=== PATIENT | female | born 1980 | race American Indian/Alaskan Native ===

== ENCOUNTER 2020-09-13 12:23 | Emergency (ER) | payer BC ==
[2020-09-13] MEDS ORDERED: ACETAMINOPHEN 325 MG TAB PO ONE (13:33)
--- NOTE | 2020-09-13 14:04 | XRay Report ---
CHEST 2 VIEWS INDICATION: cough. COMPARISON: None. FINDINGS: Support devices: None. Heart: Within normal limits. Lungs/Pleura: No acute air space or interstitial disease. No significant pleural effusion. IMPRESSION: No acute findings. Signer Name: Jay Simpson MD Signed: 09/13/2020 1:59 PM Workstation Name: [id number]
--- NOTE | 2020-09-13 14:18 | Emergency Department Report ---
- General Chief Complaint: Upper Respiratory Infection Stated Complaint: COUGH/CP/WHEEZING/NOSEBLEED Time Seen by Provider: 09/13/20 12:54 Source: patient Mode of arrival: Ambulatory Limitations: No Limitations - History of Present Illness Initial Comments: Patient is a 40-year-old female presents emergency room complaints of URI symptoms that began 4 days ago. She states that she took a COVID-19 test 4 days ago and reports it was negative. She states that she has productive cough with mucus production, chest congestion, wheezing after coughing, nausea, chest discomfort and shortness of breath after coughing, generalized body aches. She denies any fever, vomiting, diarrhea, hemoptysis, leg swelling, pleuritic chest pain. she states that she has been taking Mucinex, TheraFlu, Elizabeth-Premont sinus medication. She denies any sick contacts or recent travel. She has a past medical history of hypertension and SVT and states that she takes metoprolol 50 mg. She has an adverse reaction to codeine. She is on Depo provera and denies any missed doses. - Related Data Previous Rx's Medication Instructions Recorded Last Taken Type Acetaminophen [Tylenol] 650 mg PO Q8HR PRN #20 capsule 09/13/20 Unknown Rx Albuterol Sulfate [Proventil Hfa] 6.7 gm IH TID PRN #1 hfa.aer.ad 09/13/20 Unknown Rx Azithromycin [Zithromax TAB] 250 mg PO QDAY 5 Days #6 tablet 09/13/20 Unknown Rx Prednisone [predniSONE 10 mg 10 mg PO .TAPER #1 tab.ds.pk 09/13/20 Unknown Rx (6-Day Pack, 21 Tabs)] guaiFENesin/DEXTROMETHORPHAN 1 each PO Q8HR PRN #14 capsule 09/13/20 Unknown Rx [Coricidin Hbp Chest Gianni-Cough] traMADoL [Ultram 50 MG tab] 50 mg PO Q6HR PRN #10 tablet 09/13/20 Unknown Rx Allergies Allergy/AdvReac Type Severity Reaction Status Date / Time codeine Allergy Nausea Verified 09/13/20 12:36 ED Review of Systems ROS: Stated complaint: COUGH/CP/WHEEZING/NOSEBLEED Other details as noted in HPI Comment: All other systems reviewed and negative ED Past Medical Hx - Past Medical History Hx Hypertension: Yes Additional medical history: SVT - Surgical History Additional Surgical History: ALBATION - Medications Home Medications: Home Medications Medication Instructions Recorded Confirmed Last Taken Type Acetaminophen [Tylenol] 650 mg PO Q8HR PRN #20 capsule 09/13/20 Unknown Rx Albuterol Sulfate [Proventil Hfa] 6.7 gm IH TID PRN #1 hfa.aer.ad 09/13/20 Unknown Rx Azithromycin [Zithromax TAB] 250 mg PO QDAY 5 Days #6 tablet 09/13/20 Unknown Rx Prednisone [predniSONE 10 mg 10 mg PO .TAPER #1 tab.ds.pk 09/13/20 Unknown Rx (6-Day Pack, 21 Tabs)] guaiFENesin/DEXTROMETHORPHAN 1 each PO Q8HR PRN #14 capsule 09/13/20 Unknown Rx [Coricidin Hbp Chest Gianni-Cough] traMADoL [Ultram 50 MG tab] 50 mg PO Q6HR PRN #10 tablet 09/13/20 Unknown Rx ED Physical Exam - General Limitations: No Limitations General appearance: alert, in no apparent distress - Head Head exam: Present: atraumatic, normocephalic - Eye Eye exam: Present: normal appearance - ENT ENT exam: Present: mucous membranes moist - Respiratory Respiratory exam: Present: rhonchi (left lower, clears with coughing). Absent: respiratory distress, wheezes, rales, stridor, chest wall tenderness, accessory muscle use, decreased breath sounds, prolonged expiratory - Cardiovascular Cardiovascular Exam: Present: regular rate, normal rhythm, normal heart sounds. Absent: systolic murmur, diastolic murmur, rubs, gallop - Neurological Exam Neurological exam: Present: alert, oriented X3 - Psychiatric Psychiatric exam: Present: normal affect, normal mood - Skin Skin exam: Present: warm, dry, intact ED Course Vital Signs 09/13/20 09/13/20 09/13/20 12:38 14:00 14:24 Temperature 99.9 F H 100 F H Pulse Rate 106 H 95 H Respiratory 18 16 18 Rate Blood Pressure 171/113 145/91 [Right] O2 Sat by Pulse 98 100 Oximetry ED Medical Decision Making - Radiology Data Radiology results: report reviewed Ordering Physician: SYDNI TUCKER Date of Service: 09/13/20 Procedure(s): XR chest routine 2V Accession Number(s): [id number] cc: SYDNI TUCKER Fluoro Time In Minutes: CHEST 2 VIEWS INDICATION: cough. COMPARISON: None. FINDINGS: Support devices: None. Heart: Within normal limits. Lungs/Pleura: No acute air space or interstitial disease. No significant pleural effusion. IMPRESSION: No acute findings. Signer Name: Jay Simpson MD Signed: 09/13/2020 1:59 PM Workstation Name: [id number] Transcribed By: ES Dictated By: Jay Simpson MD Electronically Authenticated By: Jay Simpson MD Signed Date/Time: 09/13/201358 DD/ 58 TD/TT: - Medical Decision Making Patient is a 40-year-old female presents emergency room complaints of URI symptoms that began 4 days ago. She states that she took a COVID-19 test 4 days ago and reports it was negative. She states that she has productive cough with mucus production, chest congestion, wheezing after coughing, nausea, chest discomfort and shortness of breath after coughing, generalized body aches. She denies any fever, vomiting, diarrhea, hemoptysis, leg swelling, pleuritic chest pain. she states that she has been taking Mucinex, TheraFlu, Elizabeth-Premont sinus medication. She denies any sick contacts or recent travel. She has a past medical history of hypertension and SVT and states that she takes metoprolol 50 mg. She has an adverse reaction to codeine. She is on Depo provera and denies any missed doses. Vitals with low-grade temperature, mildly elevated heart rate, elevated blood pressure, heart rate and blood pressure improved upon repeat. Patient given Tylenol for the low-grade temperature. on exam:left lower rhonchi, clears with coughing, no wheezing, no rales, no respiratory distress, no accessory muscle use. CXR: IMPRESSION: No acute findings. Patient given prescription for azithromycin, albuterol inhaler, prednisone, Tylenol, tramadol, Corcidin. advised pt Please take medication as prescribed. Please increase your fluid intake over the next several days. Follow-up with a primary care doctor for reexamination. Return to emergency room immediately for any new or worsening symptoms including but not limited to difficulty breathing, shortness of breath, severe chest pain, unable to tolerate by mouth intake, etc. Please self quarantine for 10 days from the onset of your symptoms. Please do not go out in public. If you are around others at home please wear a mask. If you need to cough or sneeze please do so in a napkin and immediately throw it away and immediately wash your hands. Wash your hands frequently. Wipe everything down. - Differential Diagnosis URI, PNA, acute bronchitis, reactive airway, viral syndrome, COVID19 Critical care attestation.: If time is entered above; I have spent that time in minutes in the direct care of this critically ill patient, excluding procedure time. ED Disposition Clinical Impression: Acute bronchitis Qualifiers: Bronchitis organism: unspecified organism Qualified Code(s): J20.9 - Acute bronchitis, unspecified Disposition: DC-01 TO HOME OR SELFCARE Is pt being admited?: No Does the pt Need Aspirin: No Condition: Stable Instructions: Acute Bronchitis, Adult, Acute Bronchitis (ED) Additional Instructions: Please take medication as prescribed. Please increase your fluid intake over the next several days. Follow-up with a primary care doctor for reexamination. Return to emergency room immediately for any new or worsening symptoms including but not limited to difficulty breathing, shortness of breath, severe chest pain, unable to tolerate by mouth intake, etc. Please self quarantine for 10 days from the onset of your symptoms. Please do not go out in public. If you are around others at home please wear a mask. If you need to cough or sneeze please do so in a napkin and immediately throw it away and immediately wash your hands. Wash your hands frequently. Wipe everything down. Prescriptions: guaiFENesin/DEXTROMETHORPHAN [Coricidin Hbp Chest Gianni-Cough] 1 each PO Q8HR PRN #14 capsule PRN Reason: cough/congestion Prednisone [predniSONE 10 mg (6-Day Pack, 21 Tabs)] 10 mg PO .TAPER #1 tab.ds.pk Albuterol Sulfate [Proventil Hfa] 6.7 gm IH TID PRN #1 hfa.aer.ad PRN Reason: Shortness Of Breath Acetaminophen [Tylenol] 650 mg PO Q8HR PRN #20 capsule PRN Reason: pain, fever traMADoL [Ultram 50 MG tab] 50 mg PO Q6HR PRN #10 tablet PRN Reason: Pain , Severe (7-10) Azithromycin [Zithromax TAB] 250 mg PO QDAY 5 Days #6 tablet Referrals: PRIMARY CARE,MD [Primary Care Provider] - 2-3 Days Forms: Work/School Release Form(ED) Time of Disposition: 14:15 Print Language: SAMI
[2020-09-13 14:25] VITALS: BP 145/91
== END 2020-09-13 14:30 | disposition home or self-care (01) ==
LOC: ED 12:23
DX: J20.9 Acute bronchitis, unspecified (principal); I10 Essential (primary) hypertension; Z79.899 Other long term (current) drug therapy; Z88.8 Allergy status to other drugs, medicaments and biological substances
CPT/HCPCS: 71046